=== PATIENT | female | born 1975 | race Caucasian/White ===

== ENCOUNTER 2018-06-20 11:07 | Emergency (ER) | payer SELFPAY ==
[~2018-06-20] VITALS: Ht 167.6 cm; Wt 70.9 kg
[2018-06-20 11:10] VITALS: Ht 167.6 cm; Wt 70.9 kg
[2018-06-20 11:51] LABS: APPEARANCE HAZY (CLEAR); BILIRUBIN NEGATIVE (NEGATIVE); COLOR STRAW (YELLOW); GLUCOSE NEGATIVE (NEGATIVE); KETONE NEGATIVE (NEGATIVE); NITRITE NEGATIVE (NEGATIVE); PROTEIN NEGATIVE (NEGATIVE); UROBILINOGEN NORMAL (NORMAL)
[2018-06-20 12:28] LABS: ALBUMIN 3.7 g/dL (3.4-5.0); ALKALINE PHOSPHATASE 73 U/L (46-116); ALT (SGPT) 18 U/L (10-68); BILIRUBIN - TOTAL 0.25 mg/dL (0.2-1.3); CALC OSMOLALITY 276 mosm/kg (275-300); CALCIUM 8.7 mg/dL (8.5-10.1); CHLORIDE - SERUM 102 mmol/L (98-107); CREATININE - SERUM 0.8 mg/dL (0.6-1.3); GLUCOSE 109 mg/dL (74-106); POTASSIUM - SERUM 4.1 mmol/L (3.5-5.1); PROTEIN - SERUM 7.7 g/dL (6.4-8.2); SODIUM 137 mmol/L (136-145); UREA NITROGEN 18 mg/dL (7-18); eGFR NON AFRICAN AMERICAN 83 mL/min (90-120)
[2018-06-20 12:32] LABS: BASOPHILS 0.3 % (0-2); EOSINOPHILS 1.2 % (0-7); HEMATOCRIT 39.1 % (36.0-48.0); HEMOGLOBIN 13.7 g/dL (12-16); IMMATURE GRANULOCYTES 0.2 % (0-5); LYMPHOCYTES 21.5 % (15-50); MCH 31.1 pg (26.0-34.0); MCV 88.9 fL (80.0-100.0); MEAN PLATELET VOLUME 11.1 fL (7.4-10.4); MONOCYTES 4.1 % (2-11); NEUTROPHILS 72.7 % (40-80); PLATELET COUNT 226 10x3/uL (130-400); RDW 13.2 % (11.5-14.5); WBC 9.5 10x3/uL (4.8-10.8)
[2018-06-20 12:40] LABS: AMYLASE - SERUM 34 U/L (25-115); CKMB 0.6 U/L (0.0-3.6); CREATINE KINASE 38 UL (21-215); LIPASE 76 U/L (73-393); TROPONIN-I < 0.017 ng/mL (0.000-0.060)
[2018-06-20 14:37] LABS: HCG URINE NEGATIVE (NEGATIVE)
[2018-06-20] MEDS ORDERED: ACETAMINOPHEN500 M1 PO (14:46)
[2018-06-20] MEDS ORDERED: CYCLOBENZAPRINE10 MG PO (14:46)
[2018-06-20] MEDS ORDERED: IBUPROFEN800 MG PO (14:46)
[2018-06-20 15:11] VITALS: BP 112/56
== END 2018-06-20 15:12 | disposition home or self-care (01) ==
LOC: D.ER 11:07
PROVIDERS: Family Medicine
DX: S29.012A Strain of muscle and tendon of back wall of thorax, initial encounter (principal); X58.XXXA Exposure to other specified factors, initial encounter; Y93.89 Activity, other specified; Y92.89 Other specified places as the place of occurrence of the external cause; M54.6 Pain in thoracic spine